=== PATIENT | male | born 1945 | race Caucasian/White ===

== ENCOUNTER → 2017-05-07 | Outpatient (CLI) | END | disposition home or self-care (01) ==

== ENCOUNTER → 2017-05-17 | Outpatient (CLI) | END | disposition home or self-care (01) ==

== ENCOUNTER → 2017-06-10 | Outpatient (CLI) | END | disposition home or self-care (01) ==

== ENCOUNTER 2017-06-20 08:49 | Inpatient (IN) | END 2017-06-22 16:55 | disposition home health service (06) | DRG 470 ==

== ENCOUNTER → 2017-07-08 | Outpatient (CLI) | END | disposition home or self-care (01) ==

== ENCOUNTER → 2017-08-05 | Outpatient (CLI) | END | disposition home or self-care (01) ==

== ENCOUNTER → 2017-09-16 | Outpatient (CLI) | END | disposition home or self-care (01) ==

== ENCOUNTER → 2018-01-06 | Outpatient (CLI) | END | disposition home or self-care (01) ==